=== PATIENT | female | born 1965 | race African-American/Black ===

== ENCOUNTER 2017-07-25 09:45 | Emergency (ER) | payer OTHER, MEDICAID ==
[~2017-07-25] VITALS: Ht 165.1 cm; Wt 97.0 kg
[~2017-07-25 09:45] MED LIST: AMOX/K CLAV875 M1 PO; AMOXICILLIN875 MG OR; AZITHROMYCIN250 MG PO; BACTRIM DS1 TAB PO; BAYER LOW81 MG OR; CORTISPORIN OTI10 M1 AD; CYCLOBENZAPR10 MG PO; CYCLOBENZAPRINE10 MG PO; DARVOCET-N50 MG OR; DICLOFENAC SODI75 MG PO; IBUPROFEN800 MG; IBUPROFEN800 MG PO; INDOMETHACIN25 MG OR; LIPITOR10 MG OR; LORTAB 10-325 M1 TAB PO; LYRICA25 MG PO; MEDDOSEPAK OR; MELOXICAM7.5 MG PO; METROGEL VAG0.75 % VA; MOTRIN800 MG PO; NAPROSYN500 MG OR; NAPROXEN250 MG PO; NO HOME MEDS; NO MEDS; PREDNISONE10 MG PO; RA MED; RHEUMATREX2.5 M1 PO; RHEUMATREX2.5 MG OR; SEROQUEL100 MG PO; TERAZOL 70.4 % VA; TINIDAZOLE500 MG PO; TOPAMAX25 MG PO; TRAMADOL HCL50 MG PO; TRIAMCINOLON0.5 % EX; TRILEPTAL300 M1 PO; ULTRAM50 M1 PO; ULTRAM50 MG OR; ULTRAM50 MG PO; ZYRTEC10 MG PO
[2017-07-25] MEDS ORDERED: DICLOFENAC SODI75 MG PO (10:04)
[2017-07-25 11:13] LABS: HEMATOCRIT 41.5 % (37.0-47.0); HEMOGLOBIN 13.1 g/dl (12.0-16.0); IMMATURE GRANULOCYTES 0.6 % (0.0-1.0); MEAN CELL VOLUME 91.4 fL CALC (80.0-100.0); MEAN CORPUSCULAR HGB 28.9 pG CALC (26.0-32.0); MEAN CORPUSCULAR HGB CONC 31.6 g/L CALC (32.0-36.0); NEUT# 6.76 thou/uL (2.00-7.15); RED BLOOD COUNT 4.54 mill/uL (4.20-5.60)
[2017-07-25 11:26] LABS: ALBUMIN 3.9 g/dL (3.2-5.0); ALKALINE PHOSPHATASE 77 u/l (38-126); ANION GAP 13 (6-22 (CALC)); BILIRUBIN, TOTAL 0.5 mg/dL (0.0-1.4); BUN 12 mg/dL (7-17); BUN/CREATININE RATIO 18 (12-20 (CALC)); CALCIUM 9.2 mg/dL (8.4-10.2); CARBON DIOXIDE 27 mmol/l (22-30); CHLORIDE 111 mmol/l (95-108); CREATININE 0.7 mg/dL (0.5-1.0); GFR > 60 ML/MIN (>=60 (CALC)); GFR FOR AFR.AMER. > 60 ML/MIN (>=60 (CALC)); GLUCOSE 96 mg/dL (65-105); LIPASE 254 u/l (23-300); POTASSIUM 3.8 mmol/l (3.5-5.1); SGOT/AST 19 u/l (14-36); SGPT/ALT 31 u/l (9-52); SODIUM 147 mmol/l (137-146); TOTAL PROTEIN 7.2 g/dL (6.3-8.2)
[2017-07-25] MEDS ORDERED: CYCLOBENZAPR5 MG PO (13:18)
[2017-07-25] MEDS ORDERED: MOTRIN400 MG PO (13:18)
[2017-07-25 14:18] VITALS: BP 135/71
== END 2017-07-25 14:23 | disposition home or self-care (01) | DRG 552 ==
LOC: ED 09:45
PROVIDERS: Family Medicine
DX: M54.2 Cervicalgia (principal); M54.5 Low back pain; M25.511 Pain in right shoulder; M25.531 Pain in right wrist; M79.672 Pain in left foot; M79.1 Myalgia; R11.0 Nausea; V43.52XA Car driver injured in collision with other type car in traffic accident, initial encounter; Y92.410 Unspecified street and highway as the place of occurrence of the external cause
CPT/HCPCS: Q9967

== ENCOUNTER 2017-07-30 17:14 | Emergency (ER) | payer OTHER, MEDICAID ==
[~2017-07-30] VITALS: Ht 165.1 cm; Wt 98.0 kg
[~2017-07-30 17:14] MED LIST changes: +CYCLOBENZAPR5 MG PO; +MOTRIN400 MG PO
[2017-07-30] MEDS ORDERED: FIORICET PO (19:27)
[2017-07-30 19:40] VITALS: BP 136/75
== END 2017-07-30 19:40 | disposition home or self-care (01) | DRG 103 ==
LOC: ED 17:14
DX: R51 Headache (principal); H92.03 Otalgia, bilateral; M54.2 Cervicalgia; R11.2 Nausea with vomiting, unspecified; V43.52XD Car driver injured in collision with other type car in traffic accident, subsequent encounter

== ENCOUNTER 2017-10-17 15:22 | Emergency (ER) | payer MEDICAID ==
[~2017-10-17] VITALS: Ht 165.1 cm; Wt 95.0 kg
[~2017-10-17 15:22] MED LIST changes: +FIORICET PO
[2017-10-17] MEDS ORDERED: TRAMADOL HCL50 MG PO (15:56)
[2017-10-17] MEDS ORDERED: DICLOFENAC SODI75 M1 PO (15:57)
[2017-10-17] MEDS ORDERED: NAPROSYN500 MG PO (15:58)
[2017-10-17] MEDS ORDERED: LISINOPRIL10 M1 PO (15:58)
[2017-10-17] MEDS ORDERED: FOLIC ACID1 MG PO (15:59)
[2017-10-17] MEDS ORDERED: GABAPENTIN400 M2 PO (15:59)
[2017-10-17] MEDS ORDERED: CELEBREX100 M1 PO (16:00)
[2017-10-17] MEDS ORDERED: CELECOXIB200 MG PO (16:01)
[2017-10-17 16:13] LABS: INFLUENZA A NONE DETECTED (NONE DETECT); INFLUENZA B NONE DETECTED (NONE DETECT)
[2017-10-17] MEDS ORDERED: CEPHALEXIN500 MG PO ×2 (16:22→16:53)
[2017-10-17] MEDS ORDERED: ROBITUSSIN AC10 ML PO (16:22)
[2017-10-17 16:30] VITALS: BP 121/74
== END 2017-10-17 16:30 | disposition home or self-care (01) | DRG 203 ==
LOC: ED 15:22
PROVIDERS: Emergency Medicine
DX: J40 Bronchitis, not specified as acute or chronic (principal); F17.210 Nicotine dependence, cigarettes, uncomplicated; R05 Cough; R51 Headache; M79.1 Myalgia

== ENCOUNTER 2019-05-06 13:47 | Emergency (ER) | payer MEDICAID ==
[~2019-05-06] VITALS: Ht 165.1 cm; Wt 90.0 kg
[~2019-05-06 13:47] MED LIST changes: +CELEBREX100 M1 PO; +CELECOXIB200 MG PO; +CEPHALEXIN500 MG PO; +DICLOFENAC SODI75 M1 PO; +FOLIC ACID1 MG PO; +GABAPENTIN400 M2 PO; +LISINOPRIL10 M1 PO; +NAPROSYN500 MG PO; +ROBITUSSIN AC10 ML PO
[2019-05-06] MEDS ORDERED: LEVOTHYROXIN75 MCG PO (14:13)
[2019-05-06] MEDS ORDERED: PREDNISONE10 MG PO (14:13)
[2019-05-06 14:16] LABS: HEMATOCRIT 41.7 % (37.0-47.0); HEMOGLOBIN 13.2 g/dl (12.0-16.0); MEAN CELL VOLUME 91.6 fL CALC (80.0-100.0); MEAN CORPUSCULAR HGB CONC 31.7 g/L CALC (32.0-36.0); NEUT# 6.72 thou/uL (2.00-7.15); RED BLOOD COUNT 4.55 mill/uL (4.20-5.60)
[2019-05-06 14:33] LABS: INTERNATIONAL NORMALIZED RATIO 0.9 RATIO (0.7-1.3); PROTHROMBIN TIME 9.9 SECONDS (9.0-12.5)
[2019-05-06] MEDS ORDERED: PROTONIX40 MG PO (15:15)
[2019-05-06] MEDS ORDERED: ANUCORT-HC25 MG RE (15:15)
[2019-05-06 15:55] VITALS: BP 112/62
== END 2019-05-06 15:55 | disposition home or self-care (01) ==
LOC: ED 13:47
PROVIDERS: Emergency Medicine
DX: K62.5 Hemorrhage of anus and rectum (principal); I10 Essential (primary) hypertension; F17.200 Nicotine dependence, unspecified, uncomplicated; R10.12 Left upper quadrant pain

== ENCOUNTER 2019-05-08 11:04 | Emergency (ER) | payer MEDICAID ==
[~2019-05-08] VITALS: Ht 165.1 cm; Wt 97.3 kg
[~2019-05-08 11:04] MED LIST changes: +ANUCORT-HC25 MG RE; +LEVOTHYROXIN75 MCG PO; +PROTONIX40 MG PO
[2019-05-08 12:06] LABS: HEMATOCRIT 42.6 % (37.0-47.0); HEMOGLOBIN 13.6 g/dl (12.0-16.0); IMMATURE GRANULOCYTES 0.9 % (0.0-5.0); MEAN CELL VOLUME 91.8 fL CALC (80.0-100.0); MEAN CORPUSCULAR HGB 29.3 pG CALC (26.0-32.0); MEAN CORPUSCULAR HGB CONC 31.9 g/L CALC (32.0-36.0); NEUT# 9.91 thou/uL (2.00-7.15); RED BLOOD COUNT 4.64 mill/uL (4.20-5.60); RED CELL DISTRI WIDTH 12.8 % (11.5-15.5)
[2019-05-08 12:27] LABS: ALKALINE PHOSPHATASE 91 u/l (38-126); ANION GAP 12 (6-22 (CALC)); BILIRUBIN, TOTAL 0.6 mg/dL (0.0-1.4); BUN 10 mg/dL (7-17); BUN/CREATININE RATIO 12 (12-20 (CALC)); CARBON DIOXIDE 29 mmol/l (22-30); CHLORIDE 105 mmol/l (95-108); CREATININE 0.8 mg/dL (0.5-1.0); GFR > 60 ML/MIN (>=60 (CALC)); GFR FOR AFR.AMER. > 60 ML/MIN (>=60 (CALC)); LIPASE 199 u/l (23-300); POTASSIUM 3.8 mmol/l (3.5-5.1); SGOT/AST 24 u/l (14-36); SODIUM 142 mmol/l (137-146); TOTAL PROTEIN 7.7 g/dL (6.3-8.2)
[2019-05-08 15:58] VITALS: BP 157/73
== END 2019-05-08 16:08 | disposition home or self-care (01) ==
LOC: ED 11:04
PROVIDERS: Emergency Medicine
DX: R07.89 Other chest pain (principal); I10 Essential (primary) hypertension; K21.9 Gastro-esophageal reflux disease without esophagitis; F17.210 Nicotine dependence, cigarettes, uncomplicated

== ENCOUNTER 2019-08-25 16:01 | Emergency (ER) | payer MEDICAID ==
[~2019-08-25] VITALS: Ht 165.1 cm; Wt 97.0 kg
[2019-08-25 16:28] LABS: HEMATOCRIT 41.8 % (37.0-47.0); HEMOGLOBIN 13.5 g/dl (12.0-16.0); IMMATURE GRANULOCYTES 0.9 % (0.0-5.0); MEAN CELL VOLUME 90.1 fL CALC (80.0-100.0); MEAN CORPUSCULAR HGB 29.1 pG CALC (26.0-32.0); MEAN CORPUSCULAR HGB CONC 32.3 g/L CALC (32.0-36.0); NEUT# 3.67 thou/uL (2.00-7.15); RED BLOOD COUNT 4.64 mill/uL (4.20-5.60); RED CELL DISTRI WIDTH 13.1 % (11.5-15.5)
[2019-08-25 16:42] LABS: ALBUMIN 3.7 g/dL (3.2-5.0); ALKALINE PHOSPHATASE 81 u/l (38-126); BILIRUBIN, TOTAL 0.6 mg/dL (0.0-1.4); BUN 14 mg/dL (7-17); BUN/CREATININE RATIO 12 (12-20 (CALC)); CHLORIDE 106 mmol/l (95-108); CREATININE 1.2 mg/dL (0.5-1.0); ETHYL ALCOHOL 0 mg/dl (0-30); GFR 47 ML/MIN (>=60 (CALC)); GFR FOR AFR.AMER. 57 ML/MIN (>=60 (CALC)); LIPASE 311 u/l (23-300); MAGNESIUM 1.8 mg/dL (1.6-2.3); POTASSIUM 3.4 mmol/l (3.5-5.1); SODIUM 139 mmol/l (137-146); TOTAL PROTEIN 7.1 g/dL (6.3-8.2)
[2019-08-25 16:44] LABS: ANION GAP 13 (6-22 (CALC)); CARBON DIOXIDE 23 mmol/l (22-30); SGOT/AST 54 u/l (14-36)
[2019-08-25] MEDS ORDERED: METRONIDAZOL500 MG PO (17:54)
[2019-08-25] MEDS ORDERED: LISINOPRIL10 MG PO (17:55)
[2019-08-25] MEDS ORDERED: LEFLUNOMIDE20 MG PO (17:56)
[2019-08-25 18:09] LABS: URINE BILIRUBIN - DIPSTICK NEGATIVE (NEGATIVE); URINE BLOOD DIPSTICK NEGATIVE (NEGATIVE); URINE COLOR YELLOW; URINE GLUCOSE - DIPSTICK 250 mg/dL (NEGATIVE); URINE KETONE NEGATIVE (NEGATIVE); URINE LEUK ESTERASE NEGATIVE (NEGATIVE); URINE NITRITE - DIPSTICK NEGATIVE (Negative); URINE PH 5.5 (4.5-8.0); URINE PROTEIN - DIPSTICK NEGATIVE (NEG-TRACE); URINE SPECIFIC GRAVITY >=1.030; URINE UROBILINOGEN - DIPSTICK 0.2 E.U./dL (0.2)
[2019-08-25 18:12] LABS: BARBITURATES NEGATIVE (NEGATIVE); COCAINE NEGATIVE (NEGATIVE); METHADONE NEGATIVE (NEGATIVE); OXCYCODONE NEGATIVE (NEGATIVE); TETRAHYDROCANNABIONOL POSITIVE (NEGATIVE); TRICYLIC ANTIDEPRESSANTS NEGATIVE (NEGATIVE)
[2019-08-25] MEDS ORDERED: KEPPRA500 M2 PO (18:24)
[2019-08-25 19:01] VITALS: BP 115/56
== END 2019-08-25 19:01 | disposition home or self-care (01) ==
LOC: ED 16:01
DX: R56.9 Unspecified convulsions (principal)
CPT/HCPCS: J1953

== ENCOUNTER 2019-09-21 16:28 | Emergency (ER) | payer MEDICAID ==
[~2019-09-21] VITALS: Ht 165.1 cm; Wt 95.0 kg
[~2019-09-21 16:28] MED LIST changes: +KEPPRA500 M2 PO; +LEFLUNOMIDE20 MG PO; +LISINOPRIL10 MG PO; +METRONIDAZOL500 MG PO
[2019-09-21] MEDS ORDERED: ZPAK PO (16:57)
[2019-09-21 17:15] VITALS: BP 167/88
== END 2019-09-21 17:21 | disposition home or self-care (01) ==
LOC: ED 16:28
DX: J06.9 Acute upper respiratory infection, unspecified (principal); I10 Essential (primary) hypertension; F17.210 Nicotine dependence, cigarettes, uncomplicated

== ENCOUNTER 2020-06-26 08:17 | Observation (INO) | payer MEDICAID ==
[~2020-06-26] VITALS: Ht 167.6 cm; Wt 85.4 kg
[~2020-06-26 08:17] MED LIST changes: +CYMBALTA60 MG PO; +FOLIC ACID1 M1 PO; +LEVOTHYROXIN75 MC1 PO; +METHOTREXATE2.5 M2 PO; +PANTOPRAZOLE SO40 M1 PO; +PRAVASTATIN20 MG PO; +ZPAK PO
--- NOTE | 2020-06-26 08:17 | NUR ---
PT TO ROOM VIA WC WEEPING FOR BEDSIDE TRIAGE
--- NOTE | 2020-06-26 08:25 | NUR ---
PT CHANGED TO GOWN. BLACKMON AT BEDSIDE. PT AOX 3. SKIN PINK WARM AND DRY. REPORTS MULTIPLE AREAS WITH ABCESS X 2 WEEKS. ABCESS ON RIGHT SHOULDER BLADE, LEFT FRONT CHEST, LEFT LOWER ABDOMEN RAISED, RED, WARM AND PAINFUL
[2020-06-26 08:51] LABS: HEMATOCRIT 41.2 % (37.0-47.0); HEMOGLOBIN 13.1 g/dl (12.0-16.0); IMMATURE GRANULOCYTES 0.4 % (0.0-5.0); MEAN CORPUSCULAR HGB 28.6 pG CALC (26.0-32.0); MEAN CORPUSCULAR HGB CONC 31.8 g/dL CAL (32.0-36.0); NEUT# 10.41 thou/uL (2.00-7.15); RED BLOOD COUNT 4.58 mill/uL (4.20-5.60); RED CELL DISTRI WIDTH 12.7 % (11.5-15.5)
--- NOTE | 2020-06-26 09:00 | NUR ---
EDP UPDATED ON + IGG/IGM. ISOLATION INITIATED
[2020-06-26 09:09] LABS: ALBUMIN 4.2 g/dL (3.2-5.0); ALKALINE PHOSPHATASE 100 u/l (38-126); BUN 9 mg/dL (7-17); BUN/CREATININE RATIO 12 (12-20 (CALC)); CHLORIDE 100 mmol/l (95-108); CREATININE 0.7 mg/dL (0.5-1.0); GFR > 60 ML/MIN (>=60 (CALC)); GFR FOR AFR.AMER. > 60 ML/MIN (>=60 (CALC)); POTASSIUM 3.8 mmol/l (3.5-5.1); SGOT/AST 22 u/l (14-36); SODIUM 137 mmol/l (137-146); TOTAL PROTEIN 7.8 g/dL (6.3-8.2)
[2020-06-26 09:22] LABS: ANION GAP 11 (6-22 (CALC)); BILIRUBIN, TOTAL 0.9 mg/dL (0.0-1.4); CARBON DIOXIDE 30 mmol/l (22-30)
--- NOTE | 2020-06-26 09:23 | NUR ---
PT REFUSES COVID SWAB. DR KRAFT AWARE
[2020-06-26 10:04] LABS: URINE BILIRUBIN - DIPSTICK NEGATIVE (NEGATIVE); URINE BLOOD DIPSTICK NEGATIVE (NEGATIVE); URINE COLOR YELLOW; URINE GLUCOSE - DIPSTICK NEGATIVE (NEGATIVE); URINE KETONE NEGATIVE (NEGATIVE); URINE LEUK ESTERASE NEGATIVE (NEGATIVE); URINE NITRITE - DIPSTICK NEGATIVE (Negative); URINE PH 5.5 (4.5-8.0); URINE PROTEIN - DIPSTICK NEGATIVE (NEG-TRACE); URINE SPECIFIC GRAVITY 1.025; URINE UROBILINOGEN - DIPSTICK 0.2 E.U./dL (0.2)
--- NOTE | 2020-06-26 10:14 | NUR ---
PT RESTING ON STRETCHER. IV ANTIBIOTIC INFUSING. PAIN 01/25
--- NOTE | 2020-06-26 10:45 | NUR ---
REPORT GIVEN TO JOSÉ JOHN
--- NOTE | 2020-06-26 10:48 | NUR ---
PT ARRIVED TO UNIT VIA WHEELCHAIR WITH ER STAFF; ALERT AND ORIENTED X 4. AMBUALTED TO BED WITH STEADY GAIT. C/O SEVERE PAIN TO ABSCESS AREAS; LARGE ABSCESS TO RIGHT MIDDLE BACK, SMALLER ABSCESS TO LEFT UPPER CHEST AND LOWER ABDOMEN. NO DRIANAGE NOTED TO ANY; PHOTOTS TAKEN AND PLACED IN CHART. RESPIRATIONS EVEN AND UNLABORED ON ROOM AIR. PT ADMITTED TO [place]/CONTACT PRECAUTIONS FOR POSITIVE RAPID BLOOD TEST RESULTS; PT DENIES ANY SYMPTOMS OF COVID; NO SOB, COUGH, OR DIARRHEA. ORIENTED TO ROOM AND CALL LIGHT SYSTEM. PLAN OF CARE DISCUSSED. PT ENCOURAGED TO VERBALIZE CONCERNS. STATES UNDERSTANDING. SAFETY MEASURES IN PLACE. CALL LIGHT WITHIN REACH.
--- NOTE | 2020-06-26 10:50 | NUR ---
PT TRANSPORTED VIA WHEELCHAIR TO [facility]
[2020-06-26 11:44] VITALS: BP 129/54
[2020-06-26] MEDS ORDERED: PROTONIX40 M2 PO (11:51)
--- NOTE | 2020-06-26 13:22 | NUR ---
MORPHINE GIVEN FOR 8/10 PAIN TO LESIONS ON RIGHT BACK, LEFT CHEST, AND LOWER ABDOMEN.
--- NOTE | 2020-06-26 13:51 | NUR ---
DR. FINE AT BEDSIDE FOR CONSULTATION. MORPHINE EFFECTIVE FOR PAIN.
--- NOTE | 2020-06-26 14:30 | NUR ---
NEW ORDER RECEIVED TO OBTAIN CONSENT FOR I&D OF ABSESSES TOMORROW MORNING. NPO DIET AFTER MIDNIGHT.
[2020-06-26 16:00] VITALS: BP 148/61
--- NOTE | 2020-06-26 17:08 | NUR ---
ANESTHESIA AT BEDSIDE TO DISCUSS PLANNED PROCEDURE FOR TOMORROW.
--- NOTE | 2020-06-26 17:30 | NUR ---
PT DECLINES BIOFIRE SWAB.
[2020-06-26 19:12] VITALS: BP 128/52
--- NOTE | 2020-06-26 20:00 | NUR ---
PATIENT ALERT, VERBAL, ABLE TO MAKE NEEDS KNOWNN. ABLE TO TOLERATE MEDS WELL WHOLE. CONT OF BOWEL AND BLADDER--ABLE TO AMBULATE TO AND FROM BR IN ROOM WITH MINIMAL ASSIST. REQUESTED PRN MORPHINE TIMES 1 THIS SHIFT FOR C/OS OF RIGHT BACK PAIN--POSITIVE EFFECT. PIV SITE PATENT TO LEFT AC--FLUSHES WELL--SITE UNREMARKABLE. CONT ON IV ABT THERAPY RELATED TO MULTIPLE ABSCESSED AREAS TO BODY WITH NO SIDE EFFECTS NOTED. TO BE NPO AFTER MIDNIGHT THIS SHIFT IN PREPARATION FOR I&D OR PROCEDURE IN THE AM. WILL CONT TO MONITOR FOR ANY FURTHER CHANGES.
[2020-06-27] VITALS (10 sets, daily range): BP systolic 100–137; BP diastolic 52–59
--- NOTE | 2020-06-27 | NUR ---
PATIENT ASKED FOR A HEAT SOURCE TO BE PLACED TO HER BACK ABSCESS--HEATED BLANKET APPLIED FOR COMFORT--POSITIVE EFFECT THUS FAR. PATIENT REMAINS NPO AT THIS TIME FOR PROCEDURE IN THE AM. WILL CONT TO MONITOR FOR ANY FURTHER CHANGES.
--- NOTE | 2020-06-27 04:00 | NUR ---
PATIENT HAS RESTED SOUNDLY ALL NIGHT IN BED WITH EYES CLOSED--REQUESTED PRN IV DILAUDID EARLIER FOR SOME DISCOMFORT IN RIGHT BACK ABSCESS--MEDICATED WITH POSITIVE EFFECT. PIV SITE PATENT TO LEFT AC AREA--FLUSHES WELL--SITE UNREMARKABLE. REMAINS NPO FOR I&D PROCEDURE SCHEDULED FOR TODAY. WILL CONT TO MONITOR FOR ANY FURTHER CHANGES.
[2020-06-27 04:55] LABS: HEMOGLOBIN 11.7 g/dl (12.0-16.0); IMMATURE GRANULOCYTES 0.7 % (0.0-5.0); MEAN CELL VOLUME 90.9 fL CALC (80.0-100.0); MEAN CORPUSCULAR HGB 28.7 pG CALC (26.0-32.0); MEAN CORPUSCULAR HGB CONC 31.6 g/dL CAL (32.0-36.0); NEUT# 11.34 thou/uL (2.00-7.15); RED BLOOD COUNT 4.07 mill/uL (4.20-5.60); RED CELL DISTRI WIDTH 12.5 % (11.5-15.5)
[2020-06-27 05:16] LABS: ALBUMIN 3.4 g/dL (3.2-5.0); ALKALINE PHOSPHATASE 87 u/l (38-126); ANION GAP 12 (6-22 (CALC)); BUN 7 mg/dL (7-17); BUN/CREATININE RATIO 10 (12-20 (CALC)); CARBON DIOXIDE 26 mmol/l (22-30); CHLORIDE 100 mmol/l (95-108); CREATININE 0.7 mg/dL (0.5-1.0); GFR > 60 ML/MIN (>=60 (CALC)); GFR FOR AFR.AMER. > 60 ML/MIN (>=60 (CALC)); POTASSIUM 3.5 mmol/l (3.5-5.1); SGOT/AST 22 u/l (14-36); SODIUM 135 mmol/l (137-146); TOTAL PROTEIN 6.7 g/dL (6.3-8.2)
--- NOTE | 2020-06-27 07:15 | NUR ---
REPORT RECEIVED FROM SERGIO AVENDANO. PT RESTING IN BED ON LEFT SIDE WITH EYES CLOSED; OPENS EYES SPONTANEOUSLY. USING CALL LIGHT TO REQUEST PAIN MEDICATION FOR PAIN TO HEAD AND ABSESSES; UPSET AND AGITATED THAT SHE CANNOT EAT; EXPLAINED TO PT THAT DUE TO HER POSITIVE COVID TEST RESULTS SHE IS SCHEDULED IN THE AFTERNOON; STATES UNDERSTANDING. RESPIRATIONS EVEN AND UNLABORED ON ROOM AIR. PLAN OF CARE REVIEWED. PT ENCOURAGED TO VEBRALIZE CONCERNS. STATES UNDERSTANDING. SAFETY MEASURES IN PLACE. CALL LIGHT WITHIN REACH.
--- NOTE | 2020-06-27 09:00 | NUR ---
DR. HERNDON AT [facility] TO DISCUSS POC. PT TEARFUL; REPORTS SEVERE PAIN AND WANTS SOMETHING TO DRINK. NEW ORDERS RECEIVED FROM IV FLUIDS AND ADDITIONAL DOSE OF PAIN MEDICATION IV; PT PROVIDED WITH MOISTENED TOOTHETS TO MOISTEN MOUTH.
--- NOTE | 2020-06-27 10:00 | NUR ---
IV FLUDIS INITAITED; VANCO INFUSING AT THIS TIME; IV SITE APPEARS HEALTHY AND FLUSHES. ADDITIONAL DOSE OF MORHINE GIVEN WITH GOOD EFFECT. PRIOR TO PAIN MEDICATION PT WAS CRYING REPORTING ARTHRITIS PAIN WELL; STATES, "I JUST HURT SO BAD ALL OVER." AFTER MEDICATION PT WAS UP TO BSC INDEPENDENTLY AND STANDING; REPORTS IMMEDIATE PAIN RELIEF. WILL CONTINUE TO MONITOR.
--- NOTE | 2020-06-27 10:41 | NUR ---
PT OFF UNIT VIA BED WITH OR STAFF IN STABLE CONDITION.
--- NOTE | 2020-06-27 12:33 | NUR ---
PT BACK TO UNIT FROM OR VIA BED IN STABLE CONDITION; ALERT AND OREINTED. MILD PAIN TO INCISION SITES TO BACK, CHEST, AND ABDOMEN. DRESSINGS TO ALL SITES CDI. VSS. RESPIRATIONS EVEN AND UNLABORED ON ROOM AIR. SCD APPLIED TO BLE. POST OP ORDERS TO RESUME PREOPORDERS; BEGIN DRESSING CHANGES TONIGHT MOIST TO DRY TID. SAFETY MEASURES IN PLACE. CALL LIGHT WITHIN REACH.
--- NOTE | 2020-06-27 13:22 | NUR ---
S: JANETTE SAEED is a 55 F who presents with Cellulities/Abscess. She has a history of arthritis, hypertension, gerd, and seizure. All medications in patient's chart were reviewed. O: VS: BP 128/77 mmHg, P 79 bpm, RR 20 breaths/minute,T 97.8 F W 85.389 kg, HT 167.64 cm, Scr=0.7 mg/dL, CrCl= 101 ml/min A: Blood culture is pending. P: Patient is on ceftriaxone 1g IV q24h. Vancomycin ordered for pharmacy to dose. Start Vancomycin 1g IV Q8H. Vancomycin trough is drawn before the 4th dose on 06/28/2020 @ 0530. Vancomycin goal trough is between 15-20 mcg/ml. Pharmacy will follow and or advise on antibiotics use as needed.
--- NOTE | 2020-06-27 15:00 | NUR ---
IV SITE TO LAC OCCLUDED; AFTER MULTIPLE ATTEMPTS A NEW IV SITE WAS PLACED AGAIN TO LAC. IV SITE APPEARS HEALTHY AND VANCO INFUSING AT THIS TIME.
--- NOTE | 2020-06-27 15:45 | NUR ---
PT ON PHONE WITH CASE MANAGEMENT. STATES THAT HER PAIN IS MINIMAL AT THIS TIME.
--- NOTE | 2020-06-27 17:58 | NUR ---
PERCOCET GIVEN PER REQUEST FOR MODERATE PAIN.
--- NOTE | 2020-06-27 18:59 | NUR ---
REPORT RECEIVED FROM DORA KUMAR. PT RESTING IN BED, FREE FROM DISTRESS AT THIS TIME. WILL CONTINUE TO MONITOR.
--- NOTE | 2020-06-27 21:20 | NUR ---
PT RESTING IN BED, ALERT AND ORIENTED. RESPIRATIONS EVEN AND UNLABORED ON RA. LUNGS SOUND DIMINISHED. PEDAL PULSES ARE STRONG. PT REPORTS PAIN OF A 7/10, PT TO BE MEDICATED PER EMAR ORDERS. DRESSING TO PT UPPER RIGHT BACK SOILED AND SEROSANGUINEOUS DRAINAGE NOTED, DRESSING REMOVED, PT HAVING EXCESSIVE PAIN CRYING OUT AND HYPERVENTOLATING, PT TO BE MEDICATED PER EMAR ORDERS, TALKED TO PATIENT ASKING HER TO TAKE DEEP SLOW BREATHS, PT FOLLOWED DIRECTION WELL, WAS ABLE TO COMPLETE DRESSING CHANGE PER ORDERS. DRESSING TO THE LEFT UPPRER CHEST, SOILED, DRESSIG REMOVED, AND NEW MOIST TO DRY DRESSING PLACE PER ORDERS, PT TOLERATED WELL. DRESSING TO THE LOWER LEFT ABDOMEN SOILED, DRESSING REMOVED, NEW MOIST TO DRY DRESSING APPLIED PER ORDERS, PT TOLERATED WELL. SOILED LINENS CHANGED. PT PROVIDED WITH A WARM BLANKET PER REQUEST. CALL [place] WITHIN REACH WILL CONTINUE TO MONITOR.
--- NOTE | 2020-06-28 00:25 | NUR ---
PT RESTING IN BED, NO S/S OF DISTRESS AT THIS TIME. SAFETY PRECAUTIONS IN PLACE. WILL CONTINUE TO MONITOR.
[2020-06-28 00:35] VITALS: BP 132/50
--- NOTE | 2020-06-28 04:03 | NUR ---
PT RESTING IN BED, NO S/S OF DISTRESS AT THIS TIME. SAFETY PRECAUTIONS IN PLACE. WILL CONTINUE TO MONITOR.
[2020-06-28 05:49] LABS: HEMATOCRIT 36.2 % (37.0-47.0); HEMOGLOBIN 11.5 g/dl (12.0-16.0); IMMATURE GRANULOCYTES 0.4 % (0.0-5.0); MEAN CELL VOLUME 92.1 fL CALC (80.0-100.0); MEAN CORPUSCULAR HGB 29.3 pG CALC (26.0-32.0); MEAN CORPUSCULAR HGB CONC 31.8 g/dL CAL (32.0-36.0); NEUT# 9.74 thou/uL (2.00-7.15); RED BLOOD COUNT 3.93 mill/uL (4.20-5.60); RED CELL DISTRI WIDTH 12.3 % (11.5-15.5)
[2020-06-28 06:03] LABS: ALBUMIN 3.4 g/dL (3.2-5.0); ALKALINE PHOSPHATASE 92 u/l (38-126); ANION GAP 10 (6-22 (CALC)); BILIRUBIN, TOTAL 0.8 mg/dL (0.0-1.4); BUN 7 mg/dL (7-17); BUN/CREATININE RATIO 12 (12-20 (CALC)); CARBON DIOXIDE 25 mmol/l (22-30); CHLORIDE 103 mmol/l (95-108); CREATININE 0.6 mg/dL (0.5-1.0); GFR > 60 ML/MIN (>=60 (CALC)); GFR FOR AFR.AMER. > 60 ML/MIN (>=60 (CALC)); POTASSIUM 3.4 mmol/l (3.5-5.1); SGOT/AST 26 u/l (14-36); SODIUM 135 mmol/l (137-146); TOTAL PROTEIN 6.7 g/dL (6.3-8.2)
[2020-06-28 08:48] VITALS: BP 135/46
--- NOTE | 2020-06-28 08:48 | NUR ---
PT LAYING ON THE SIDE OF THE BED. A&O X3. NO DISTRESS NOTED. 3 DRESSINGS CDI. BILATERAL SCD'S IN PLACE. PT REPORTING PAIN AT INCISION SITES. NO OTHER NEEDS AT THIS TIME. ASSESSMENT COMPLETED. DISCUSSED POC. CALL LIGHT IN REACH. CONTINUE TO MONITOR.
[2020-06-28 11:13] VITALS: BP 112/54
[2020-06-28] MEDS ORDERED: BACTRIM DS1 TAB PO (12:26)
[2020-06-28] MEDS ORDERED: PERCOCET 10/31 COMBO PO (12:32)
--- NOTE | 2020-06-28 14:11 | NUR ---
PT LAYING ON THE SIDE OF THE BED. C/O OF PAIN 05/27. PAIN MEDICATION GIVEN, TO REASSESS. NO OTHER NEEDS AT THIS TIME. CALL LIGHT IN REACH. CONTINUE TO MONITOR.
--- NOTE | 2020-06-28 17:21 | NUR ---
Discharge instructions given. Patient verbalizes understanding of same. Discharged in stable condition via wheelchair to Home with [facility] accompanied by staff. All belongings sent with pt along with controlled substance pain script.
--- NOTE | 2020-06-29 08:50 | NUR ---
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 SPOKE TO GEREMIAS PAULA RE: RESULTS. PT WAS DISCHARGED ON BACTRIM. NEW RX FOR DOXYCYCLINE 100MG PO BID X14 CALLED IN TO [facility]. PT AWARE OF WOUND CX RESULTS AND NEW RX. PT INSTRUCTED TO STOP BACTRIM AND TAKE DOXY INSTEAD.
== END 2020-06-28 17:21 | disposition home health service (06) ==
LOC: ED 08:17 → ED-I 09:15 → ED 09:51 → MS2 09:52
PROVIDERS: Family Medicine; Nurse Practitioner; ADMIT Internal Medicine; ATTEND Internal Medicine
DX: L02.212 Cutaneous abscess of back [any part, except buttock and flank] (principal); L03.312 Cellulitis of back [any part except buttock and flank]; L02.211 Cutaneous abscess of abdominal wall; L02.213 Cutaneous abscess of chest wall; U07.1 COVID-19; I10 Essential (primary) hypertension; M06.9 Rheumatoid arthritis, unspecified; E03.9 Hypothyroidism, unspecified; G40.909 Epilepsy, unspecified, not intractable, without status epilepticus; F17.210 Nicotine dependence, cigarettes, uncomplicated; B95.62 Methicillin resistant Staphylococcus aureus infection as the cause of diseases classified elsewhere
CPT/HCPCS: G0378; J1650

== ENCOUNTER 2020-06-30 15:13 | Emergency (ER) | payer MEDICAID ==
[~2020-06-30] VITALS: Ht 167.6 cm; Wt 81.8 kg
[~2020-06-30 15:13] MED LIST changes: +PERCOCET 10/31 COMBO PO; +PROTONIX40 M2 PO
[2020-06-30 16:19] VITALS: BP 124/69
== END 2020-06-30 16:32 | disposition home or self-care (01) ==
LOC: ED 15:13
DX: Z48.01 Encounter for change or removal of surgical wound dressing (principal); I10 Essential (primary) hypertension

== ENCOUNTER 2021-08-24 13:04 | Emergency (ER) | payer MEDICAID ==
[~2021-08-24] VITALS: Ht 167.6 cm; Wt 97.0 kg
[2021-08-24 14:21] LABS: HEMATOCRIT 48.5 % (37.0-47.0); IMMATURE GRANULOCYTES 0.6 % (0.0-5.0); MEAN CELL VOLUME 91.7 fL CALC (80.0-100.0); MEAN CORPUSCULAR HGB 30.1 pG CALC (26.0-32.0); MEAN CORPUSCULAR HGB CONC 32.8 g/dL CAL (32.0-36.0); NEUT# 4.18 thou/uL (2.00-7.15); RED BLOOD COUNT 5.29 mill/uL (4.20-5.60); RED CELL DISTRI WIDTH 12.6 % (11.5-15.5)
[2021-08-24 14:23] LABS: HEMOGLOBIN 15.9 g/dl (12.0-16.0)
[2021-08-24 14:43] LABS: ALBUMIN 4.2 g/dL (3.2-5.0); ANION GAP 15 (6-22 (CALC)); BUN 12 mg/dL (7-17); BUN/CREATININE RATIO 15 (12-20 (CALC)); CARBON DIOXIDE 22 mmol/l (22-30); CHLORIDE 101 mmol/l (95-108); CREATININE 0.8 mg/dL (0.5-1.0); GFR > 60 ML/MIN (>=60 (CALC)); GFR FOR AFR.AMER. > 60 ML/MIN (>=60 (CALC)); LIPASE 237 u/l (23-300); MAGNESIUM 1.9 mg/dL (1.6-2.3); POTASSIUM 3.8 mmol/l (3.5-5.1); SODIUM 134 mmol/l (137-146); TOTAL PROTEIN 7.9 g/dL (6.3-8.2)
[2021-08-24 14:44] LABS: ALKALINE PHOSPHATASE 117 u/l (38-126); BILIRUBIN, TOTAL 0.9 mg/dL (0.0-1.4); SGOT/AST 37 u/l (14-36)
[2021-08-24 15:07] LABS: URINE BILIRUBIN - DIPSTICK NEGATIVE (NEGATIVE); URINE BLOOD DIPSTICK NEGATIVE (NEGATIVE); URINE COLOR YELLOW; URINE GLUCOSE - DIPSTICK >=1000 mg/dL (NEGATIVE); URINE KETONE 15 mg/dL (NEGATIVE); URINE LEUK ESTERASE NEGATIVE (NEGATIVE); URINE PH 5.5 (4.5-8.0); URINE PROTEIN - DIPSTICK NEGATIVE (NEG-TRACE); URINE UROBILINOGEN - DIPSTICK 0.2 E.U./dL (0.2)
[2021-08-24 15:13] LABS: URINE NITRITE - DIPSTICK NEGATIVE (Negative)
[2021-08-24 16:43] VITALS: BP 156/76
== END 2021-08-24 17:05 | disposition home or self-care (01) ==
LOC: ED 13:04
DX: E11.65 Type 2 diabetes mellitus with hyperglycemia (principal); I10 Essential (primary) hypertension; K21.9 Gastro-esophageal reflux disease without esophagitis; F32.A Depression, unspecified; E78.00 Pure hypercholesterolemia, unspecified; F17.210 Nicotine dependence, cigarettes, uncomplicated; Z79.4 Long term (current) use of insulin; Z20.822 Contact with and (suspected) exposure to COVID-19

== ENCOUNTER 2022-04-10 18:06 | Observation (INO) | payer MEDICAID ==
[~2022-04-10] VITALS: Ht 167.6 cm; Wt 77.2 kg
[~2022-04-10 18:06] MED LIST changes: +D32000 UNIT PO; +GABAPENTIN100 MG PO; +HYDROCODONE BIT1 TA7; +LEFLUNOMIDE10 MG PO; +OXYCODONE5 M1 PO; +PREDNISONE20 MG PO; +PREDNISONE5 MG PO; +PROAIR HFA IN; +PROPRANOLOL HCL40 MG PO; +PROTONIX40 M1 IV
--- NOTE | 2022-04-10 18:08 | NUR ---
PT AMBUALTORY TO ROOM
--- NOTE | 2022-04-10 18:09 | NUR ---
PT TO ROOM VIA WC
[2022-04-10 18:13] VITALS: BP 165/86
[2022-04-10] MEDS ORDERED: PANTOPRAZOLE SO40 M1 PO (18:25)
[2022-04-10] MEDS ORDERED: METFORMIN HCL500 M1 PO (18:26)
[2022-04-10 18:42] LABS: HEMATOCRIT 41.7 % (37.0-47.0); HEMOGLOBIN 13.2 g/dl (12.0-16.0); IMMATURE GRANULOCYTES 0.4 % (0.0-5.0); MEAN CELL VOLUME 95.2 fL CALC (80.0-100.0); MEAN CORPUSCULAR HGB 30.1 pG CALC (26.0-32.0); MEAN CORPUSCULAR HGB CONC 31.7 g/dL CAL (32.0-36.0); NEUT# 9.61 thou/uL (2.00-7.15); RED BLOOD COUNT 4.38 mill/uL (4.20-5.60); RED CELL DISTRI WIDTH 12.7 % (11.5-15.5)
[2022-04-10 18:50] LABS: ALBUMIN 3.8 g/dL (3.2-5.0); ALKALINE PHOSPHATASE 55 u/l (38-126); ANION GAP 9 (6-22 (CALC)); BILIRUBIN, TOTAL 0.4 mg/dL (0.0-1.4); BUN 16 mg/dL (7-17); BUN/CREATININE RATIO 21 (12-20 (CALC)); CARBON DIOXIDE 26 mmol/l (22-30); CHLORIDE 111 mmol/l (95-108); CREATININE 0.8 mg/dL (0.5-1.0); GFR FOR AFR.AMER. > 60 ML/MIN (>=60 (CALC)); GFR OTHER RACES > 60 ML/MIN (>=60 (CALC)); LIPASE 174 u/l (23-300); POTASSIUM 3.8 mmol/l (3.5-5.1); SGOT/AST 29 u/l (14-36); SODIUM 142 mmol/l (137-146); TOTAL PROTEIN 7.1 g/dL (6.3-8.2)
[2022-04-10 19:00] LABS: MYOGLOBIN 23 ng/mL (0 - 62)
[2022-04-10 19:38] LABS: URINE BILIRUBIN - DIPSTICK NEGATIVE (NEGATIVE); URINE BLOOD DIPSTICK NEGATIVE (NEGATIVE); URINE COLOR YELLOW; URINE GLUCOSE - DIPSTICK 250 mg/dL (NEGATIVE); URINE KETONE TRACE mg/dL (NEGATIVE); URINE LEUK ESTERASE NEGATIVE (NEGATIVE); URINE PROTEIN - DIPSTICK NEGATIVE (NEG-TRACE); URINE SPECIFIC GRAVITY 1.025; URINE UROBILINOGEN - DIPSTICK 0.2 E.U./dL (0.2)
[2022-04-10 19:39] LABS: URINE NITRITE - DIPSTICK NEGATIVE (Negative)
--- NOTE | 2022-04-10 20:06 | NUR ---
REPORT RECEIVED FROM ARIN JOHN
--- NOTE | 2022-04-10 20:14 | NUR ---
REPORT CALLED TO FLOOR
--- NOTE | 2022-04-10 20:15 | NUR ---
PT TRANSFERRED TO FLOOR
--- NOTE | 2022-04-10 20:16 | NUR ---
PATIENT UP TO FLOOR VIA WHEELCAIR ACCOMPANIED BY ARIN JOHN.
[2022-04-10 21:49] VITALS: BP 159/92
--- NOTE | 2022-04-10 22:14 | NUR ---
CONTACTED MD REGARDING PATIENTS PAIN MEDICATION, UPDATED CORRECT MED REC FOR MD.
[2022-04-10] MEDS ORDERED: LORTAB 1010 MG PO (22:18)
--- NOTE | 2022-04-11 | NUR ---
PATIENT RESRTING COMFORTABLY, DENIES ANY CURRENT NEEDS, CALL LIGHT AND BEDSIDE TABLE WITHIN REACH.
[2022-04-11 00:30] VITALS: BP 117/74
[2022-04-11 03:42] VITALS: BP 141/75
[2022-04-11 05:02] VITALS: BP 141/75
--- NOTE | 2022-04-11 05:30 | NUR ---
PATIENT REFUSING TO HAVE BLOOD DRAWS FROM HAND, X2 ATTEMPTS MADE BY Kang BARONE, BLOOD HEMOLIZED
[2022-04-11 06:27] VITALS: BP 161/90
[2022-04-11 06:28] VITALS: BP 161/90
--- NOTE | 2022-04-11 06:28 | NUR ---
nurse notified of patient glocuse monitor was [id number].
--- NOTE | 2022-04-11 06:35 | NUR ---
PATIENTS PAIN MEDICATION NOT IN EMAR, MESSAGE LEFT FOR DR FONTAINE REGARDING PAIN MEDICATION. PROVIDED WARM PACK FOR PATIENT FRO CHRONIC BACK PAIN 01/25.
--- NOTE | 2022-04-11 08:10 | NUR ---
PT SITTING IN LOW KENYON'S POSITION; A&O X3. EVEN AND UNLABORED RESPIRATIONS; CLEAR LUNG SOUNDS UPON AUSCULTATION. TELEMETRY IN PLACE WITH LAST READING SR-83. IV SITE HEALTHY AND PATENT. ACTIVE BOWEL SOUNDS UPON AUSCULTATION. SAFETY PRECAUTIONS IN PLACE WITH CALL LIGHT IN REACH.
--- NOTE | 2022-04-11 09:00 | NUR ---
PT C/O LOWER BACK PAIN, LEVEL 10/10; ADMINISTERED PAIN MEDICATION PER EMAR. SAFETY PRECAUTIONS IN PLACE WITH CALL LIGHT IN REACH.
[2022-04-11 09:13] LABS: HEMATOCRIT 36.9 % (37.0-47.0); HEMOGLOBIN 11.7 g/dl (12.0-16.0); MEAN CELL VOLUME 95.3 fL CALC (80.0-100.0); MEAN CORPUSCULAR HGB 30.2 pG CALC (26.0-32.0); MEAN CORPUSCULAR HGB CONC 31.7 g/dL CAL (32.0-36.0); RED BLOOD COUNT 3.87 mill/uL (4.20-5.60); RED CELL DISTRI WIDTH 12.8 % (11.5-15.5)
[2022-04-11 09:46] LABS: ANION GAP 7 (6-22 (CALC)); BUN 13 mg/dL (7-17); BUN/CREATININE RATIO 22 (12-20 (CALC)); CARBON DIOXIDE 24 mmol/l (22-30); CHLORIDE 110 mmol/l (95-108); CHOLESTEROL HDL RATIO 3.1 (<4.4 (CALC)); CREATININE 0.6 mg/dL (0.5-1.0); GFR FOR AFR.AMER. > 60 ML/MIN (>=60 (CALC)); GFR OTHER RACES > 60 ML/MIN (>=60 (CALC)); HDL CHOLESTEROL 40 mg/dL (>=40); MAGNESIUM 1.9 mg/dL (1.6-2.3); POTASSIUM 3.5 mmol/l (3.5-5.1); SODIUM 138 mmol/l (137-146); TOTAL TRIGLYCERIDES 101 mg/dl (30-149); VLDL CHOLESTROL 20 mg/dl (2-49 (CALC))
[2022-04-11 09:55] LABS: CALCULATED LDLCHOLESTEROL 65 mg/dL (62-129 (CALC)); TOTAL CHOLESTEROL 125 mg/dl (0-199)
[2022-04-11 10:38] VITALS: BP 152/74
[2022-04-11] MEDS ORDERED: ASPIRIN ADULT L81 M2 PO (11:03)
[2022-04-11] MEDS ORDERED: FLEXERIL5 M1 PO (11:50)
--- NOTE | 2022-04-11 11:51 | NUR ---
PT EDUCATED ON DC INSTRUCTIONS; PT SHOWED UNDERSTANDING. IV REMOVED: #20G LEFT AC, CATHETER INTACT UPON REMOVAL,PT TOLERATED WELL. REMOVED TELEMETRY BOX, ER NOTIFIED.
--- NOTE | 2022-04-11 12:00 | NUR ---
PT SITTING ON SIDE OF BED HAVING LUNCH. PT STATES: " I AM READY TO GO HOME SOON I FINISH WITH LUNCH." SAFETY PRECAUTIONS IN [place] WITH CALL LIGHT IN REACH.
--- NOTE | 2022-04-11 12:21 | NUR ---
PT LEFT @ 1221. Discharge instructions given. Patient verbalizes understanding of same. Discharged in stable condition via Wheelchair to Home with staff. All belongings sent with pt.
== END 2022-04-11 12:27 | disposition home or self-care (01) ==
LOC: ED 18:06 → ED-I 19:29 → ED 19:38 → MS2 19:39
PROVIDERS: Nurse Practitioner; ADMIT Hospitalist; ATTEND Hospitalist
DX: R07.2 Precordial pain (principal); I10 Essential (primary) hypertension; E11.9 Type 2 diabetes mellitus without complications; M06.9 Rheumatoid arthritis, unspecified; E03.9 Hypothyroidism, unspecified; K21.9 Gastro-esophageal reflux disease without esophagitis; M54.9 Dorsalgia, unspecified; G89.29 Other chronic pain; F17.210 Nicotine dependence, cigarettes, uncomplicated; Z79.84 Long term (current) use of oral hypoglycemic drugs; Z20.822 Contact with and (suspected) exposure to COVID-19
CPT/HCPCS: G0378; J1650

== ENCOUNTER 2022-06-27 13:44 | Emergency (ER) | payer MEDICAID ==
[2022-06-27] VITALS (7 sets, daily range): BP systolic 105–144; BP diastolic 42–83
[~2022-06-27] VITALS: Ht 167.6 cm; Wt 73.0 kg
[~2022-06-27 13:44] MED LIST changes: +ASPIRIN ADULT L81 M2 PO; +FLEXERIL5 M1 PO; +LORTAB 1010 MG PO; +METFORMIN HCL500 M1 PO
[2022-06-27 14:31] LABS: HEMATOCRIT 39.3 % (37.0-47.0); HEMOGLOBIN 13.1 g/dl (12.0-16.0); IMMATURE GRANULOCYTES 0.6 % (0.0-5.0); MEAN CELL VOLUME 89.9 fL CALC (80.0-100.0); MEAN CORPUSCULAR HGB CONC 33.3 g/dL CAL (32.0-36.0); NEUT# 4.66 thou/uL (2.00-7.15); RED BLOOD COUNT 4.37 mill/uL (4.20-5.60); RED CELL DISTRI WIDTH 12.7 % (11.5-15.5)
[2022-06-27 14:41] LABS: ALBUMIN 3.8 g/dL (3.2-5.0); ALKALINE PHOSPHATASE 69 u/l (38-126); ANION GAP 12 (6-22 (CALC)); BILIRUBIN, TOTAL 0.4 mg/dL (0.0-1.4); BUN 16 mg/dL (7-17); BUN/CREATININE RATIO 17 (12-20 (CALC)); CARBON DIOXIDE 25 mmol/l (22-30); CHLORIDE 109 mmol/l (95-108); CPK 64 u/l (30-165); ETHYL ALCOHOL 0 mg/dl (0-30); GFR FOR AFR.AMER. > 60 ML/MIN (>=60 (CALC)); GFR OTHER RACES 57 ML/MIN (>=60 (CALC)); LIPASE 143 u/l (23-300); MAGNESIUM 2.1 mg/dL (1.6-2.3); POTASSIUM 3.6 mmol/l (3.5-5.1); SGOT/AST 24 u/l (14-36); SODIUM 142 mmol/l (137-146)
[2022-06-27 15:01] LABS: D-DIMER 4.46 mg/L (0.19-0.60)
[2022-06-27 15:02] LABS: ACT PARTIAL THROMBO TIME 20.1 SECONDS (20.0-32.5)
[2022-06-27 17:42] LABS: URINE BILIRUBIN - DIPSTICK NEGATIVE (NEGATIVE); URINE BLOOD DIPSTICK NEGATIVE (NEGATIVE); URINE COLOR YELLOW; URINE GLUCOSE - DIPSTICK NEGATIVE (NEGATIVE); URINE KETONE NEGATIVE (NEGATIVE); URINE LEUK ESTERASE NEGATIVE (NEGATIVE); URINE PH 6.5 (4.5-8.0); URINE PROTEIN - DIPSTICK NEGATIVE (NEG-TRACE); URINE SPECIFIC GRAVITY 1.015; URINE UROBILINOGEN - DIPSTICK 0.2 E.U./dL (0.2)
[2022-06-27 17:46] LABS: URINE NITRITE - DIPSTICK NEGATIVE (Negative)
[2022-06-27] MEDS ORDERED: ZITHROMAX Z-PA250 MG PO (18:06)
== END 2022-06-27 18:19 | disposition home or self-care (01) ==
LOC: ED 13:44
PROVIDERS: Internal Medicine
DX: R55 Syncope and collapse (principal); J18.9 Pneumonia, unspecified organism; I10 Essential (primary) hypertension; E11.9 Type 2 diabetes mellitus without complications; Z79.84 Long term (current) use of oral hypoglycemic drugs; F17.200 Nicotine dependence, unspecified, uncomplicated
CPT/HCPCS: Q9967

== ENCOUNTER 2023-07-24 22:48 | Emergency (ER) | payer OTHER, MEDICAID ==
[~2023-07-24] VITALS: Ht 167.6 cm; Wt 91.0 kg
[~2023-07-24 22:48] MED LIST changes: +ZITHROMAX Z-PA250 MG PO
[2023-07-24 22:57] VITALS: BP 154/87
[2023-07-24 23:00] VITALS: BP 158/86
[2023-07-24 23:15] VITALS: BP 169/96
[2023-07-24 23:31] VITALS: BP 140/68
[2023-07-24 23:45] VITALS: BP 141/85
[2023-07-25] VITALS: BP 142/78
[2023-07-25 03:14] VITALS: BP 142/78
== END 2023-07-25 04:08 | disposition home or self-care (01) | DRG 923 ==
LOC: ED 22:48
DX: Z04.1 Encounter for examination and observation following transport accident (principal); M19.012 Primary osteoarthritis, left shoulder; I10 Essential (primary) hypertension; E11.9 Type 2 diabetes mellitus without complications; F17.210 Nicotine dependence, cigarettes, uncomplicated; Z79.84 Long term (current) use of oral hypoglycemic drugs

== ENCOUNTER 2024-05-12 10:24 | Emergency (ER) | payer MEDICAID ==
[~2024-05-12] VITALS: Ht 167.6 cm; Wt 95.0 kg
[~2024-05-12 10:24] MED LIST changes: +KEPPRA750 M2 PO
[2024-05-12 10:56] VITALS: BP 137/71
[2024-05-12 11:00] VITALS: BP 141/87
[2024-05-12 11:30] VITALS: BP 144/81
[2024-05-12 12:00] VITALS: BP 147/83
[2024-05-12] MEDS ORDERED: ONDANSETRON 4 MG/TAB ODT PO ONE (12:05)
[2024-05-12] MEDS ORDERED: MORPHINE SULFATE 4 MG/ML VIAL IM ONE (12:05)
[2024-05-12 12:30] VITALS: BP 128/81
[2024-05-12] MEDS ORDERED: TRAMADOL HYDROC50 M1 PO (12:35)
[2024-05-12] MEDS ORDERED: traMADol HCL 50 MG/TAB PO ONE (12:40)
[2024-05-12 13:09] VITALS: BP 128/81
== END 2024-05-12 12:43 | disposition home or self-care (01) ==
LOC: ED 10:24
DX: M25.562 Pain in left knee (principal); I10 Essential (primary) hypertension; E11.9 Type 2 diabetes mellitus without complications; F17.200 Nicotine dependence, unspecified, uncomplicated; Z79.84 Long term (current) use of oral hypoglycemic drugs